=== PATIENT | male | born 1985 | race African-American/Black ===

== ENCOUNTER 2024-01-18 18:06 | Emergency (ER) | payer MEDICAID, OTHER ==
[~2024-01-18] VITALS: Ht 170.2 cm; Wt 90.0 kg
[2024-01-18 18:17] VITALS: BP 141/95; PULSE 84; RESP 18; TEMP 96.6; O2SAT 97
[2024-01-18] MEDS: LIDOCAINE HCL/EPINEPHRINE 1%-EPI 1:100,000 20 ML VIAL INFIL ONE (19:10)
[2024-01-18] MEDS: ACETAMINOPHEN 325MG TABLET PO ONE (19:33)
[2024-01-18] MEDS: LIDOCAINE HCL 1% 20ML VIAL (Pyxis) INJ INFIL ONE (19:48)
[2024-01-18] MEDS: BACITRACIN ZINC OINT UDPKT TOP ONE (19:50)
[2024-01-18] MEDS ORDERED: CEPH500C2 MT (20:08)
== END 2024-01-18 21:15 | disposition home or self-care (01) ==
LOC: ER 18:32
DX: S81.012A Laceration without foreign body, left knee, initial encounter (principal); S01.81XA Laceration without foreign body of other part of head, initial encounter; V29.99XA Rider (driver) (passenger) of other motorcycle injured in unspecified traffic accident, initial encounter; Y93.89 Activity, other specified; Y92.89 Other specified places as the place of occurrence of the external cause; Y99.8 Other external cause status
CPT/HCPCS: 12002; 12015; 73562; 99284; J3490

== ENCOUNTER 2024-01-25 20:08 | Emergency (ER) | payer OTHER ==
[~2024-01-25] VITALS: Ht 167.6 cm; Wt 97.0 kg
[~2024-01-25 20:08] MED LIST: CEPH500C2 MT
[2024-01-25 20:26] VITALS: BP 162/88; PULSE 68; RESP 18; TEMP 98.7; O2SAT 98
== END 2024-01-26 00:07 | disposition home or self-care (01) ==
LOC: ER 20:08
DX: S01.81XD Laceration without foreign body of other part of head, subsequent encounter (principal); S81.812D Laceration without foreign body, left lower leg, subsequent encounter; X58.XXXD Exposure to other specified factors, subsequent encounter
CPT/HCPCS: 99281; A4565

== ENCOUNTER 2024-04-12 19:05 | Emergency (ER) | payer OTHER ==
[~2024-04-12] VITALS: Ht 172.7 cm; Wt 81.0 kg
[2024-04-12 19:11] VITALS: BP 137/91; PULSE 110; RESP 20; TEMP 98.7; O2SAT 97
[2024-04-12] MEDS ORDERED: KETOROLAC 30MG/ML VIAL IV ONE (20:45)
[2024-04-12] MEDS ORDERED: MIDAZOLAM HCL 2 MG/2 ML VIAL IV ONE (20:45)
== END 2024-04-12 22:50 | disposition left against medical advice (07) ==
LOC: ER 19:05
DX: S82.842A Displaced bimalleolar fracture of left lower leg, initial encounter for closed fracture (principal); Y08.89XA Assault by other specified means, initial encounter; Y93.89 Activity, other specified; Y92.89 Other specified places as the place of occurrence of the external cause; Y99.8 Other external cause status
CPT/HCPCS: 73610; 99283